=== PATIENT | male | born 1985 | race Caucasian/White ===

== ENCOUNTER → 2016-05-17 | Outpatient (CLI) | payer BC ==
[~2016-05-17] MED LIST: BACLOFEN10 MG PO; IBUPROFEN800 MG PO; NO MEDICATIONS; NORCO 7.5-3251 EACH PO; NORCO1 TAB 10/3 PO; VICODIN 5/500 T1 TAB PO
--- NOTE | ~2016-05-17 | MR17 ---
[facility] A Service of [facility] RADIOLOGY TEXT RESULTS PATIENT: RASHARD MOORE LOCATION: [facility] : 83 UNIT #: [id number] AGE: [address]: VIRGIL HARLTEY APRN SEX: M ORDER DR: [id number] [facility] [address] [place], [place] [address] [id number] O MR#: [id number] Acc #: [id number] NAME: RASHARD MOORE : 1985 SEX: M STUDY DATE/TIME: 05/17/2016 10:17 UNIT: [facility] ROOM: STUDY DESCRIPTION: MR Brain WWo Contrast Attending Physician: Virgil Hartley A.P.R.N. Referring Physician: Virgil Hartley A.P.R.N. Ordering Physician: Virgil Hartley A.P.R.N. Primary Care Physician: No Primary Care Physician MRI CENTER REPORT This report is preliminary unless electronic signature is present. EXAM Brain MRI with without HISTORY Hemangioma, yearly followup. Von Hippel-Lindau prior renal cell carcinoma. COMMENT MRI of the brain was performed prior to and following the intravenous administration of 9 mL of MultiHance. Comparison studies from 05/26/2015. 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 There is a encephalomalacic area in the right cerebellar hemisphere posteriorly medially and relatively more superiorly which is stable. There are 2 areas of nodular enhancement at the margins of this malacic area. One is seen more posteroinferiorly the other is seen more anterosuperiorly and they are stable. The posterior-inferior nodule is about 4 mm in diameter. There are multiple other nodular enhancing lesions in the posterior fossa. There is a 6 mm enhancing nodule at the inferomedial aspect of the left cerebellar hemisphere with an associated cyst measuring up to about 2.1 cm in diameter. 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 Other nodular enhancing lesions are seen in the left cerebellar hemisphere smaller than this. There are probably 4 other left cerebellar hemispheric lesions and 1 of these at the more anterior aspect that is up to about 8 mm largest dimension. All of them are stable. There is no new posterior fossa mass or significant change in mass effect. It is likely that the other nodular enhancing lesions without cystic change are also small hemangioblastomas given long-term stability. (This makes metastatic disease very unlikely). There is also a enhancing extraaxial mass lesion in the suprasellar cistern. It is centered approximately at the infundibulum and results in mass effect on the upper margin of the pituitary gland and [facility] of [facility] RADIOLOGY TEXT RESULTS PATIENT: RASHARD MOORE LOCATION: [facility] : 84 UNIT #: [id number] AGE: [address]: VIRGIL HARTLEY APRN SEX: M ORDER DR: the undersurface of the optic nerves and chiasm. This mass appears quite vascular with large flow voids particularly left side posterolaterally. It measures about 1.8 x 1.8 x 1.7 cm dimension. There is also mass effect on the bilateral optic tracts and the mass protrudes into the intrapeduncular cistern. It is also stable and I suspect it is also a hemangioblastoma. The mass effect on the optic nerves and optic chiasm could account for the patient's visual disturbance. The mass is not clearly separable from the undersurface of the chiasm and the large vascular structures involve the course of the cisternal optic nerve on the left. No new intracranial mass is appreciated. There is an incidental arachnoid cyst at the anterior aspect of the left middle cranial fossa. The patient has chronic opacification of the right sided mastoid air cells. The major intracranial flow voids are maintained. Mucous retention cyst or polyp in the left maxillary sinus. No sinus air-fluid level. IMPRESSION 1. Essentially stable postoperative appearance to the brain. Patient has had prior right-sided suboccipital craniectomy for resection of a hemangioblastoma by history. There are multiple intracranial masses present which are probably multiple hemangiomas. This includes multiple posterior fossa enhancing masses as well as a enhancing mass in the suprasellar cistern. The mass in the suprasellar cistern impinges upon the undersurface of the optic chiasm, optic nerves adjacent to it and the bilateral optic tracts. This could account for the patient's visual disturbance. This is a chronic finding but please correlate with the patient's visual findings. Continued interval followup is recommended. No new intracranial masses are appreciated. Dictated by... May Hernandez M.D. THIS IS AN ELECTRONICALLY VERIFIED REPORT May Hernandez M.D. at 05/17/2016 3:07 PM ALFREDO/naima TD: 05/17/2016 14:39 JOB #: [id number] MRI CENTER REPORT COPY
== END | disposition home or self-care (01) ==
LOC: CMRI 09:44
DX: D18.02 Hemangioma of intracranial structures (principal); G93.89 Other specified disorders of brain; Z98.890 Other specified postprocedural states; Z85.841 Personal history of malignant neoplasm of brain
CPT/HCPCS: 70553; A9577